=== PATIENT | female | born 1985 | race Caucasian/White ===

== ENCOUNTER → 2017-10-10 | Outpatient (CLI) | payer OTHER ==
[2017-10-10 15:36] LABS: ALBUMIN 4.1 GM/DL (3.2-5.2); ALBUMIN/GLOBULIN RATIO 1.32 (1.00-1.93); ALKALINE PHOSPHATASE 39 U/L (45-117); ALT/SGPT 28 U/L (12-78); ANION GAP 7 MEQ/L (8-16); AST/SGOT 15 U/L (7-37); BILIRUBIN,TOTAL 0.4 MG/DL (0.2-1.0); BLOOD UREA NITROGEN 11 MG/DL (7-18); CALCIUM LEVEL 8.7 MG/DL (8.5-10.1); CARBON DIOXIDE LEVEL 28 MEQ/L (21-32); CHLORIDE LEVEL 107 MEQ/L (98-107); CREATININE FOR GFR 0.73 MG/DL (0.55-1.30); GLOMERULAR FILTRATION RATE > 60.0 (>60); GLUCOSE, FASTING 81 MG/DL (70-100); LIPASE 231 U/L (73-393); SODIUM LEVEL 142 MEQ/L (136-145); TOTAL PROTEIN 7.2 GM/DL (6.4-8.2)
[2017-10-10 15:43] LABS: BASO % 0.5 % (0.0-1.0); EOS # 0.2 10^3/uL (0.0-0.50); EOS % 4.2 % (0.0-3.0); HEMATOCRIT 39.2 % (36.0-47.0); HEMOGLOBIN 12.7 g/dl (12.0-16.0); IMMATURE GRANULOCYTE % 0.2 % (0-3.0); LYMPH # 2.9 10^3/uL (1.5-4.5); LYMPH % 51.3 % (24.0-44.0); MEAN CORPUSCULAR HEMOGLOBIN 29.5 pg (27.0-33.0); MEAN CORPUSCULAR HGB CONC 32.4 g/dl (32.0-36.5); MEAN CORPUSCULAR VOLUME 91.2 fl (80.0-96.0); MONO # 0.4 10^3/uL (0.0-0.8); MONO % 6.5 % (0.0-5.0); NEUTROPHILS # 2.1 10^3/uL (1.8-7.7); NEUTROPHILS % 37.3 % (36.0-66.0); PLATELET COUNT, AUTOMATED 242 10^3/uL (150-450); RED CELL DISTRIBUTION WIDTH 12.9 % (11.5-14.5); WHITE BLOOD COUNT 5.7 10^3/uL (4.0-10.0)
== END ==
LOC: M LAB 07:48
DX: K85.90 Acute pancreatitis without necrosis or infection, unspecified (principal)
CPT/HCPCS: 83690

== ENCOUNTER → 2017-10-15 | Outpatient (CLI) | payer OTHER | LOC: M RAD 10:24 | DX: K85.90 Acute pancreatitis without necrosis or infection, unspecified (principal); N28.1 Cyst of kidney, acquired ==

== ENCOUNTER → 2018-10-04 | Outpatient (CLI) | payer OTHER | LOC: M LAB 16:45 | PROVIDERS: ATTEND Student in an Organized Health Care Education/Training Program | DX: Z34.81 Encounter for supervision of other normal pregnancy, first trimester (principal); Z36.89 Encounter for other specified antenatal screening ==

== ENCOUNTER 2018-11-05 17:19 | Emergency (ER) | payer OTHER ==
[~2018-11-05] VITALS: Ht 177.8 cm; Wt 82.3 kg
[2018-11-05] MEDS ORDERED: PREP1TAB3 PO (17:28)
[2018-11-05] MEDS ORDERED: ONDANSETRON 4MG/2ML VIAL (J2405) IV ONE (19:30)
[2018-11-05] MEDS ORDERED: NS 1,000 ML IV ONE (19:30)
[2018-11-05 20:03] LABS: BASO % 0.3 % (0.0-1.0); EOS % 0.1 % (0.0-3.0); HEMOGLOBIN 11.2 g/dl (12.0-15.5); LYMPH % 12.8 % (24.0-44.0); MEAN CORPUSCULAR HEMOGLOBIN 30.8 pg (27.0-33.0); MEAN CORPUSCULAR HGB CONC 33.9 g/dl (32.0-36.5); MEAN CORPUSCULAR VOLUME 90.7 fl (80.0-96.0); MONO # 0.4 10^3/uL (0.0-0.8); MONO % 4.8 % (0.0-5.0); NEUTROPHILS # 6.5 10^3/uL (1.8-7.7); NEUTROPHILS % 81.6 % (36.0-66.0); PLATELET COUNT, AUTOMATED 185 10^3/uL (150-450); RED BLOOD COUNT 3.64 10^6/uL (4.00-5.40); WHITE BLOOD COUNT 7.9 10^3/uL (4.0-10.0)
[2018-11-05 20:28] LABS: ALBUMIN 3.3 GM/DL (3.2-5.2); ALT/SGPT 27 U/L (12-78); BILIRUBIN,DIRECT 0.1 MG/DL (0.0-0.2); BILIRUBIN,TOTAL 0.5 MG/DL (0.2-1.0); BLOOD UREA NITROGEN 8 MG/DL (7-18); CALCIUM LEVEL 8.6 MG/DL (8.5-10.1); CARBON DIOXIDE LEVEL 24 MEQ/L (21-32); CHLORIDE LEVEL 107 MEQ/L (98-107); CREATININE FOR GFR 0.49 MG/DL (0.55-1.30); GLOMERULAR FILTRATION RATE > 60.0 (>60); GLUCOSE, FASTING 88 MG/DL (70-100); LIPASE 85 U/L (73-393); POTASSIUM SERUM 3.7 MEQ/L (3.5-5.1); SODIUM LEVEL 138 MEQ/L (136-145); TOTAL PROTEIN 6.5 GM/DL (6.4-8.2)
[2018-11-05] MEDS ORDERED: ONDA4TAB6 PO (21:34)
[2018-11-05 21:42] VITALS: BP 96/54
== END 2018-11-05 21:47 | disposition home or self-care (01) ==
LOC: M ED 17:19
DX: O98.519 Other viral diseases complicating pregnancy, unspecified trimester (principal); O99.280 Endocrine, nutritional and metabolic diseases complicating pregnancy, unspecified trimester; Z3A.00 Weeks of gestation of pregnancy not specified
CPT/HCPCS: 36415; 80048; 80076; 81001; 83605; 83690; 85025; 96374; 99284; J2405

== ENCOUNTER → 2019-01-06 | Outpatient (CLI) | payer OTHER ==
[~2019-01-06] MED LIST: ONDA4TAB6 PO; PREP1TAB3 PO
[2019-01-06 07:48] LABS: HEMATOCRIT 32.2 % (36.0-47.0); HEMOGLOBIN 10.6 g/dl (12.0-15.5); MEAN CORPUSCULAR HEMOGLOBIN 31.3 pg (27.0-33.0); MEAN CORPUSCULAR HGB CONC 32.9 g/dl (32.0-36.5); PLATELET COUNT, AUTOMATED 225 10^3/uL (150-450); RED BLOOD COUNT 3.39 10^6/uL (4.00-5.40); WHITE BLOOD COUNT 8.2 10^3/uL (4.0-10.0)
== END ==
LOC: M LAB 06:16
PROVIDERS: ATTEND Obstetrics & Gynecology
DX: Z34.80 Encounter for supervision of other normal pregnancy, unspecified trimester (principal); Z3A.23 23 weeks gestation of pregnancy

== ENCOUNTER → 2019-01-23 | Outpatient (CLI) | payer OTHER | LOC: M LAB 06:16 | PROVIDERS: ATTEND Obstetrics & Gynecology | DX: O99.810 Abnormal glucose complicating pregnancy (principal); Z3A.00 Weeks of gestation of pregnancy not specified ==

== ENCOUNTER 2019-04-27 00:59 | Emergency (ER) | payer OTHER ==
[~2019-04-27] VITALS: Ht 177.8 cm; Wt 81.8 kg
[2019-04-27] MEDS ORDERED: CLEO300C2 PO (02:09)
[2019-04-27] MEDS ORDERED: NORCO, ANEXSIA 5/325MG TABLET (HYDROcodone/ACETAMINOPHEN) PO ONE (02:15)
[2019-04-27] MEDS ORDERED: CLINDAMYCIN 150 MG CAP PO ONE (02:15)
[2019-04-27] MEDS ORDERED: IBUP80TA PO (02:16)
[2019-04-27 02:19] VITALS: BP 146/82
== END 2019-04-27 02:25 | disposition home or self-care (01) ==
LOC: M ED 00:59
DX: N61.0 Mastitis without abscess (principal)

== ENCOUNTER → 2019-06-04 | Outpatient (REF) | payer OTHER ==
[~2019-06-04] MED LIST changes: +CLEO300C2 PO; +IBUP80TA PO
[2019-06-04 18:53] LABS: APPEARANCE, URINE CLEAR (CLEAR); BACTERIA, URINE AUTO NEGATIVE (NEGATIVE); BILIRUBIN, URINE AUTO NEGATIVE (NEGATIVE); BLOOD, URINE BLOOD 3+ (NEGATIVE); COLOR, URINE STRAW (YELLOW); GLUCOSE, URINE (UA) AUTO NEGATIVE (NEGATIVE); KETONE, URINE AUTO NEGATIVE (NEGATIVE); LEUKOCYTE ESTERASE, URINE AUTO 2+ (NEGATIVE); NITRITE, URINE AUTO NEGATIVE (NEGATIVE); PROTEIN, URINE AUTO NEGATIVE (NEGATIVE); RBC, URINE AUTO 1 /HPF (0-3); SPECIFIC GRAVITY URINE AUTO 1.002 (1.002-1.035); SQUAMOUS EPITHELIAL CELL UR AU 0 /HPF (0-6); UROBILINOGEN, URINE AUTO 0.2 mg/dL (0.0-2.0); WBC, URINE AUTO 23 /HPF (0-3)
== END ==
LOC: M SMT 17:56
PROVIDERS: ATTEND Obstetrics & Gynecology
DX: R30.0 Dysuria (principal)

== ENCOUNTER → 2020-01-29 | Outpatient (CLI) | payer OTHER ==
--- NOTE | 2020-01-29 09:36 | REP ---
Clinical: Dorsalgia. Chronic thoracic pain. Technique: AP, lateral, and swimmers views. Findings: Alignment and kyphosis is maintained. Vertebral bodies intact. No acute fracture / compression injury or subluxation. No degenerative changes. Paravertebral soft tissues are normal. Impression: Normal thoracic spine series. Electronically Signed by Jack Jeffery MD 01/29/2020 09:28 A
--- NOTE | 2020-01-29 09:38 | REP ---
Clinical: Dorsalgia. Chronic back pain. Technique: AP, lateral, bilateral oblique, and coned-down views. Findings: Alignment and lordosis is maintained. The vertebral bodies including transverse process and spinous processes are intact and there is no evidence for acute fracture / compression injury or subluxation. No evidence for spondylolysis or spondylolisthesis. Focal early advanced degenerative changes at L5-S1 includes endplate sclerosis with near complete disc space obliteration and hypertrophic facet changes. Impression: Focal early advanced degenerative spondylosis at L5-S1. Electronically Signed by Jack Jeffery MD 01/29/2020 09:29 A
== END ==
LOC: M CR 08:41
PROVIDERS: ATTEND Family Medicine
DX: M54.9 Dorsalgia, unspecified (principal); G89.29 Other chronic pain; M47.817 Spondylosis without myelopathy or radiculopathy, lumbosacral region

== ENCOUNTER → 2020-01-29 | Outpatient (REF) | payer OTHER ==
[2020-01-29 11:44] LABS: HEMATOCRIT 40.9 % (36.0-47.0); HEMOGLOBIN 12.9 g/dl (12.0-15.5); MEAN CORPUSCULAR HEMOGLOBIN 27.9 pg (27.0-33.0); MEAN CORPUSCULAR HGB CONC 31.5 g/dl (32.0-36.5); MEAN CORPUSCULAR VOLUME 88.3 fl (80.0-96.0); PLATELET COUNT, AUTOMATED 241 10^3/uL (150-450); RED BLOOD COUNT 4.63 10^6/uL (4.00-5.40); WHITE BLOOD COUNT 6.3 10^3/uL (4.0-10.0)
[2020-01-29 12:08] LABS: ALBUMIN 4.1 GM/DL (3.2-5.2); ALT/SGPT 17 U/L (12-78); BILIRUBIN,TOTAL 0.6 MG/DL (0.2-1.0); BLOOD UREA NITROGEN 14 MG/DL (7-18); C REACTIVE PROTEIN QUANTITATIV < 0.30 MG/DL (0.00-0.30); CALCIUM LEVEL 9.1 MG/DL (8.5-10.1); CARBON DIOXIDE LEVEL 26 MEQ/L (21-32); CHLORIDE LEVEL 108 MEQ/L (98-107); CREATININE FOR GFR 0.77 MG/DL (0.55-1.30); GLOMERULAR FILTRATION RATE > 60.0 (>60); GLUCOSE, FASTING 94 MG/DL (70-100); POTASSIUM SERUM 4.3 MEQ/L (3.5-5.1); SODIUM LEVEL 140 MEQ/L (136-145); TOTAL PROTEIN 7.6 GM/DL (6.4-8.2)
[2020-01-29 12:16] LABS: ERYTHROCYTE SEDIMENTATION RATE 9 mm/hr (0-20)
[2020-02-04 13:07] LABS: ANA (HEP2) Positive (.); CYCLIC CITRULLINATED PEPTIDE 5 units (0-19); HLA-B27 Negative (.); Lyme Disease IgG/IgM Antibodie <0.91 ISR (0.00-0.90); Lyme Disease IgM Ab Quantitati <0.80 index (0.00-0.79)
== END ==
LOC: M SFHCCLAY 08:27
PROVIDERS: ATTEND Family Medicine
DX: M54.9 Dorsalgia, unspecified (principal); G89.29 Other chronic pain

== ENCOUNTER 2020-10-14 00:17 | Emergency (ER) | payer OTHER ==
[~2020-10-14] VITALS: Ht 175.3 cm; Wt 79.5 kg
[~2020-10-14 00:17] MED LIST changes: -LEXA1TAB PO; -PYRI1TAB5 PO; -SULF1TAB23 PO
[2020-10-14] MEDS ORDERED: LEXA1TAB PO (00:25)
[2020-10-14] MEDS ORDERED: NS 1,000 ML IV ONE (01:05)
[2020-10-14 01:27] LABS: BASO # 0.1 10^3/uL (0.0-0.2); BASO % 0.4 % (0.0-1.0); EOS # 0.2 10^3/uL (0.0-0.5); EOS % 1.4 % (0.0-3.0); HEMATOCRIT 37.6 % (36.0-47.0); HEMOGLOBIN 12.4 g/dl (12.0-15.5); LYMPH # 2.8 10^3/uL (1.5-5.0); LYMPH % 19.8 % (24.0-44.0); MEAN CORPUSCULAR HEMOGLOBIN 29.7 pg (27.0-33.0); MONO # 0.9 10^3/uL (0.0-0.8); MONO % 6.6 % (2.0-8.0); NEUTROPHILS % 71.3 % (36.0-66.0); PLATELET COUNT, AUTOMATED 199 10^3/uL (150-450); RED BLOOD COUNT 4.18 10^6/uL (4.00-5.40)
[2020-10-14 02:02] LABS: BLOOD UREA NITROGEN 12 MG/DL (7-18); CREATININE FOR GFR 0.73 MG/DL (0.55-1.30); GLUCOSE, FASTING 113 MG/DL (70-100)
[2020-10-14 02:03] LABS: ALBUMIN 3.9 GM/DL (3.2-5.2); ALT/SGPT 15 U/L (12-78); AMYLASE 43 U/L (25-115); BILIRUBIN,DIRECT 0.1 MG/DL (0.0-0.2); BILIRUBIN,TOTAL 0.2 MG/DL (0.2-1.0); CARBON DIOXIDE LEVEL 28 MEQ/L (21-32); CHLORIDE LEVEL 107 MEQ/L (98-107); CPK CREATINE PHOSPHOKINASE 96 U/L (26-192); FREE T4 0.81 NG/DL (0.76-1.46); GLOMERULAR FILTRATION RATE > 60.0 (>60); LIPASE 86 U/L (73-393); POTASSIUM SERUM 3.7 MEQ/L (3.5-5.1); SODIUM LEVEL 140 MEQ/L (136-145); THYROID STIMULATING HORMONE 0.505 uIU/ML (0.358-3.740)
[2020-10-14] MEDS ORDERED: cefTRIAXone SOD 1 GM in D5W MINI-BAG PLUS 50 ML IV ONE (02:25)
[2020-10-14] MEDS ORDERED: PYRI1TAB5 PO (02:29)
[2020-10-14] MEDS ORDERED: SULF1TAB23 PO (02:29)
[2020-10-14 03:01] VITALS: BP 110/67
== END 2020-10-14 03:12 | disposition home or self-care (01) ==
LOC: M ED 00:17
DX: N39.0 Urinary tract infection, site not specified (principal); R31.0 Gross hematuria; R30.0 Dysuria; N10 Acute pyelonephritis; F41.9 Anxiety disorder, unspecified; Z79.899 Other long term (current) drug therapy
CPT/HCPCS: 80048; 80076; 81001; 82150; 82550; 83690; 83735; 84439; 84443; 84702; 85025; 87088; 87186; 96361; 96365; 99284; J0696

== ENCOUNTER → 2020-10-14 | Outpatient (CLI) | payer OTHER ==
[~2020-10-14] MED LIST changes: +LEXA1TAB PO; +PYRI1TAB5 PO; +SULF1TAB23 PO
[2020-10-14 15:42] LABS: BASO # 0.1 10^3/uL (0.0-0.2); BASO % 0.5 % (0.0-1.0); EOS # 0.2 10^3/uL (0.0-0.5); EOS % 2.1 % (0.0-3.0); HEMATOCRIT 37.8 % (36.0-47.0); HEMOGLOBIN 12.4 g/dl (12.0-15.5); LYMPH # 3.8 10^3/uL (1.5-5.0); LYMPH % 38.2 % (24.0-44.0); MEAN CORPUSCULAR HEMOGLOBIN 29.5 pg (27.0-33.0); MEAN CORPUSCULAR HGB CONC 32.8 g/dl (32.0-36.5); MONO # 0.8 10^3/uL (0.0-0.8); MONO % 7.6 % (2.0-8.0); NEUTROPHILS # 5.1 10^3/uL (1.5-8.5); NEUTROPHILS % 51.3 % (36.0-66.0); PLATELET COUNT, AUTOMATED 212 10^3/uL (150-450)
[2020-10-14 16:07] LABS: BLOOD UREA NITROGEN 9 MG/DL (7-18); CALCIUM LEVEL 8.8 MG/DL (8.5-10.1); CARBON DIOXIDE LEVEL 27 MEQ/L (21-32); CHLORIDE LEVEL 108 MEQ/L (98-107); CREATININE FOR GFR 0.72 MG/DL (0.55-1.30); GLOMERULAR FILTRATION RATE > 60.0 (>60); GLUCOSE, FASTING 98 MG/DL (70-100); POTASSIUM SERUM 3.6 MEQ/L (3.5-5.1); SODIUM LEVEL 141 MEQ/L (136-145)
== END ==
LOC: M LAB 14:43
PROVIDERS: ATTEND Family Medicine
DX: F41.9 Anxiety disorder, unspecified (principal); N12 Tubulo-interstitial nephritis, not specified as acute or chronic

== ENCOUNTER 2020-11-11 11:50 | Emergency (ER) | payer OTHER ==
[~2020-11-11] VITALS: Ht 175.3 cm; Wt 80.0 kg
[~2020-11-11 11:50] MED LIST changes: +LEXA1TAB PO; +PYRI1TAB5 PO; +SULF1TAB23 PO
[2020-11-11] MEDS ORDERED: ALBUTEROL 90 MCG/ACT 8GM HFA INHALER INH ONE (13:00)
[2020-11-11 13:56] LABS: HEMATOCRIT 37.7 % (36.0-47.0); HEMOGLOBIN 12.3 g/dl (12.0-15.5); MEAN CORPUSCULAR HEMOGLOBIN 29.4 pg (27.0-33.0); MEAN CORPUSCULAR HGB CONC 32.6 g/dl (32.0-36.5); PLATELET COUNT, AUTOMATED 126 10^3/uL (150-450); RED BLOOD COUNT 4.19 10^6/uL (4.00-5.40); WHITE BLOOD COUNT 3.3 10^3/uL (4.0-10.0)
[2020-11-11 14:13] LABS: HCG, SERUM QUALITATIVE NEGATIVE (NEGATIVE)
[2020-11-11 14:14] LABS: ALBUMIN 3.5 GM/DL (3.2-5.2); ALT/SGPT 20 U/L (12-78); BILIRUBIN,TOTAL 0.2 MG/DL (0.2-1.0); BLOOD UREA NITROGEN 9 MG/DL (7-18); C REACTIVE PROTEIN QUANTITATIV 2.91 MG/DL (0.00-0.30); CALCIUM LEVEL 8.3 MG/DL (8.5-10.1); CARBON DIOXIDE LEVEL 29 MEQ/L (21-32); CHLORIDE LEVEL 108 MEQ/L (98-107); CREATININE FOR GFR 0.64 MG/DL (0.55-1.30); GLOMERULAR FILTRATION RATE > 60.0 (>60); GLUCOSE, FASTING 107 MG/DL (70-100); POTASSIUM SERUM 3.2 MEQ/L (3.5-5.1); SODIUM LEVEL 141 MEQ/L (136-145); TOTAL PROTEIN 6.7 GM/DL (6.4-8.2)
--- NOTE | 2020-11-11 14:38 | REP ---
INDICATION: Coronavirus workup. COMPARISON: 02/20/2008. TECHNIQUE: SINGLE PORTABLE AP VIEW OF THE CHEST WAS PERFORMED. FINDINGS: Bibasilar infiltrates are present. The heart is normal in size. The mediastinal silhouette is unremarkable. The visualized osseous structures are intact. IMPRESSION: Bibasilar infiltrates. <Electronically signed by Vicente Vergara > 11/11/20 [id number]
[2020-11-11 14:44] LABS: ATYPICAL LYMPH 4 % (0-5); BLAST CELLS 1 % (0-0); LYMPHOCYTES 34 % (16-44); MONOCYTES 2 % (0-5); NEUTROPHILS 51 % (28-66)
[2020-11-11 14:45] LABS: ANISOCYTOSIS 1+; PLATELET ESTIMATE DECREASED (NORMAL)
[2020-11-11] MEDS ORDERED: NS 500 ML IV ONE (15:25)
[2020-11-11] MEDS ORDERED: cefTRIAXone SOD 1 GM in D5W MINI-BAG PLUS 50 ML IV ONE (15:25)
[2020-11-11] MEDS ORDERED: ISOVUE-370 76% 100ML VIAL As Ordered ONE (15:35)
[2020-11-11] MEDS ORDERED: AUGM875T28 PO (15:48)
[2020-11-11] MEDS ORDERED: ACETAMINOPHEN 325 MG TAB PO ONE (16:00)
--- NOTE | 2020-11-11 16:04 | REP ---
INDICATION: covid +, sob, elevated d-dimer, r/o PE. COMPARISON: 02/20/2008 TECHNIQUE: CT angiography after the intravenous administration of 100 cc Isovue 370 attention pulmonary arteries. FINDINGS: There is excellent visualization of the pulmonary arterial vasculature. No focal filling defects are present that would be considered consistent with acute pulmonary emboli. The thoracic aorta is seen in limited fashion but appears to be within normal limits. There is bilateral hilar adenopathy. There is no evidence of mediastinal adenopathy. There are no pleural or pericardial effusions. The imaged upper abdomen is within normal limits. The imaged osseous structures are within normal limits. Evaluation of the lung perea shows numerable scattered airspace opacities some of which have air bronchograms and most of which have a densities higher than normally excepted as a ground-glass nodule. This represents a significant change compared to the prior exam. IMPRESSION: 1. Abnormal airspace opacities and hilar adenopathy as described above consistent with the patient's diagnosis of infectious etiology. Appropriate follow-up is recommended. 2. There is no evidence of a pulmonary embolism. <Electronically signed by Thierry Lange > 11/11/20 [id number]
[2020-11-11 16:33] VITALS: BP 116/67; O2SAT 95
--- NOTE | 2020-11-11 19:24 | ED PDOC ---
Post-Departure Follow-Up cta chest faxed to dr garza for fu Graciela Toro MD Nov 11, 2020 19:24
== END 2020-11-11 16:38 | disposition home or self-care (01) ==
LOC: M ED 11:50
DX: J12.82 Pneumonia due to coronavirus disease 2019 (principal); F41.9 Anxiety disorder, unspecified; Z79.899 Other long term (current) drug therapy
CPT/HCPCS: 71045; 71275; 80053; 83605; 84703; 85025; 85379; 86140; 87040; 94640; 96365; 99284; J0696; Q9967

== ENCOUNTER → 2021-07-31 | Outpatient (REF) | payer OTHER ==
[~2021-07-31] MED LIST changes: +AUGM875T28 PO
[2021-07-31 16:22] LABS: HEMATOCRIT 41.4 % (36.0-47.0); HEMOGLOBIN 13.5 g/dl (12.0-15.5); MEAN CORPUSCULAR HEMOGLOBIN 29.2 pg (27.0-33.0); MEAN CORPUSCULAR HGB CONC 32.6 g/dl (32.0-36.5); MEAN CORPUSCULAR VOLUME 89.4 fl (80.0-96.0); PLATELET COUNT, AUTOMATED 165 10^3/uL (150-450); RED BLOOD COUNT 4.63 10^6/uL (4.00-5.40); WHITE BLOOD COUNT 4.1 10^3/uL (4.0-10.0)
[2021-07-31 16:43] LABS: ATYPICAL LYMPH 19 % (0-5); BASOPHILS 3 % (0-1); EOSINOPHILS 3 % (0-3); LYMPHOCYTES 37 % (16-44); MONOCYTES 3 % (0-5); NEUTROPHILS 34 % (28-66)
[2021-07-31 16:44] LABS: PLATELET ESTIMATE NORMAL (NORMAL)
[2021-07-31 17:09] LABS: HCG, SERUM QUANTITATIVE < 1.0 MIU/ML
[2021-08-01 21:07] LABS: MONO SCRN NEGATIVE (NEGATIVE)
[2021-08-02 15:08] LABS: EBV AB TO NUCLEAR ANTIGEN <18.0 U/mL (0.0-17.9); EBV VIRAL CAPSID AG IgG <18.0 U/mL (0.0-17.9); EBV VIRAL CAPSID AG IgM <36.0 U/mL (0.0-35.9)
== END ==
LOC: M LAB REF 15:53
PROVIDERS: ATTEND Physician Assistant
DX: R50.9 Fever, unspecified (principal)

== ENCOUNTER 2021-08-03 13:22 | Emergency (ER) | payer OTHER ==
[~2021-08-03] VITALS: Ht 175.3 cm; Wt 81.8 kg
[2021-08-03] MEDS ORDERED: ACET-683 PO (13:34)
[2021-08-03] MEDS ORDERED: IBUP200C25 PO (13:34)
[2021-08-03 14:55] LABS: HEMATOCRIT 36.1 % (36.0-47.0); HEMOGLOBIN 11.8 g/dl (12.0-15.5); MEAN CORPUSCULAR HEMOGLOBIN 28.5 pg (27.0-33.0); MEAN CORPUSCULAR HGB CONC 32.7 g/dl (32.0-36.5); MEAN CORPUSCULAR VOLUME 87.2 fl (80.0-96.0); PLATELET COUNT, AUTOMATED 111 10^3/uL (150-450); RED BLOOD COUNT 4.14 10^6/uL (4.00-5.40); WHITE BLOOD COUNT 3.6 10^3/uL (4.0-10.0)
[2021-08-03 15:21] LABS: ALBUMIN 3.5 GM/DL (3.2-5.2); ALT/SGPT 166 U/L (12-78); BILIRUBIN,TOTAL 1.9 MG/DL (0.2-1.0); BLOOD UREA NITROGEN 18 MG/DL (7-18); CALCIUM LEVEL 8.4 MG/DL (8.5-10.1); CARBON DIOXIDE LEVEL 24 MEQ/L (21-32); CHLORIDE LEVEL 107 MEQ/L (98-107); GLOMERULAR FILTRATION RATE > 60.0 (>60); GLUCOSE, FASTING 145 MG/DL (70-100); LIPASE 62 U/L (73-393); POTASSIUM SERUM 3.5 MEQ/L (3.5-5.1); SODIUM LEVEL 139 MEQ/L (136-145)
[2021-08-03 15:33] LABS: HCG, SERUM QUALITATIVE NEGATIVE (NEGATIVE)
[2021-08-03 15:47] LABS: ATYPICAL LYMPH 27 % (0-5); MONOCYTES 10 % (0-5)
[2021-08-03 15:50] LABS: LYMPHOCYTES 22 % (16-44); NEUTROPHILS 31 % (28-66)
[2021-08-03 15:51] LABS: PLATELET ESTIMATE DECREASED (NORMAL)
[2021-08-03 18:46] LABS: MONO REFLEX EBV COMP POSITIVE (NEGATIVE)
[2021-08-03 18:56] LABS: LDH LACTATE DEHYDROGENASE 512 U/L (84-246)
[2021-08-03] MEDS ORDERED: NS 1,000 ML IV ONE (19:10)
[2021-08-03] MEDS ORDERED: ACETAMINOPHEN 500 MG TAB PO ONE (20:20)
[2021-08-03 21:09] LABS: HEPATITIS B SURFACE ANTIGEN NEGATIVE (NEGATIVE)
[2021-08-03] MEDS ORDERED: ONDA4TAB6 PO (21:10)
[2021-08-03 21:38] LABS: HEPATITIS B CORE ANTIBODY IGM NEGATIVE (NEGATIVE); HEPATITIS C VIRUS ABY INDEX 0.1 INDEX (<0.8)
[2021-08-03 21:48] VITALS: BP 126/64
== END 2021-08-03 21:51 | disposition home or self-care (01) ==
LOC: M ED 13:22
DX: B27.90 Infectious mononucleosis, unspecified without complication (principal); F41.9 Anxiety disorder, unspecified; Z86.16 Personal history of COVID-19; R16.0 Hepatomegaly, not elsewhere classified; Z79.899 Other long term (current) drug therapy

== ENCOUNTER → 2021-08-17 | Outpatient (CLI) | payer OTHER ==
[~2021-08-17] MED LIST changes: +ACET-683 PO; +IBUP200C25 PO
== END ==
LOC: M RAD 16:19
PROVIDERS: ATTEND Family Medicine
DX: E04.9 Nontoxic goiter, unspecified (principal)

== ENCOUNTER → 2021-08-31 | Outpatient (CLI) | payer OTHER ==
[2021-08-31 17:40] LABS: FREE T4 0.91 NG/DL (0.76-1.46); THYROID STIMULATING HORMONE 0.181 uIU/ML (0.358-3.740)
[2021-09-01 08:53] LABS: FREE T3 2.8 PG/ML (2.2-4.0)
== END ==
LOC: M PLALAB 15:04
PROVIDERS: ATTEND Nurse Practitioner Family
DX: E04.2 Nontoxic multinodular goiter (principal)

== ENCOUNTER → 2021-09-01 | Outpatient (REF) | payer OTHER | LOC: M SFHCCLAY 08:08 | PROVIDERS: ATTEND Family Medicine | DX: Z53.9 Procedure and treatment not carried out, unspecified reason (principal) ==

== ENCOUNTER → 2021-09-08 | Outpatient (CLI) | payer OTHER ==
[2021-09-08 17:30] LABS: BASO % 0.6 % (0.0-1.0); EOS # 0.1 10^3/uL (0.0-0.5); EOS % 2.4 % (0.0-3.0); HEMATOCRIT 35.7 % (36.0-47.0); HEMOGLOBIN 11.8 g/dl (12.0-15.5); LYMPH % 54.9 % (24.0-44.0); MEAN CORPUSCULAR HEMOGLOBIN 28.9 pg (27.0-33.0); MEAN CORPUSCULAR HGB CONC 33.1 g/dl (32.0-36.5); MEAN CORPUSCULAR VOLUME 87.3 fl (80.0-96.0); MONO # 0.4 10^3/uL (0.0-0.8); NEUTROPHILS # 1.8 10^3/uL (1.5-8.5); NEUTROPHILS % 33.9 % (36.0-66.0); PLATELET COUNT, AUTOMATED 183 10^3/uL (150-450); RED BLOOD COUNT 4.09 10^6/uL (4.00-5.40); WHITE BLOOD COUNT 5.4 10^3/uL (4.0-10.0)
[2021-09-08 17:57] LABS: BLOOD UREA NITROGEN 15 MG/DL (7-18); GLUCOSE, FASTING 93 MG/DL (70-100)
[2021-09-08 17:58] LABS: ALBUMIN 3.9 GM/DL (3.2-5.2); ALT/SGPT 25 U/L (12-78); BILIRUBIN,TOTAL 0.5 MG/DL (0.2-1.0); CALCIUM LEVEL 9.1 MG/DL (8.5-10.1); CARBON DIOXIDE LEVEL 28 MEQ/L (21-32); CHLORIDE LEVEL 107 MEQ/L (98-107); CHOLESTEROL LEVEL 183 MG/DL (<200); CHOLESTEROL RISK RATIO 3.519 (<5); FREE T4 0.84 NG/DL (0.76-1.46); GLOMERULAR FILTRATION RATE > 60.0 (>60); HDL CHOLESTEROL 52 MG/DL (>40); LDL CHOLESTEROL 102 MG/DL (<100); NON-HDL-C 131 MG/DL; POTASSIUM SERUM 3.8 MEQ/L (3.5-5.1); SODIUM LEVEL 142 MEQ/L (136-145); THYROID STIMULATING HORMONE 0.181 uIU/ML (0.358-3.740); TRIGLYCERIDES LEVEL 145 MG/DL (<150)
== END ==
LOC: M PLALAB 15:50
PROVIDERS: ATTEND Family Medicine
DX: B27.09 Gammaherpesviral mononucleosis with other complications (principal); K75.9 Inflammatory liver disease, unspecified; D69.6 Thrombocytopenia, unspecified; E78.49 Other hyperlipidemia; E04.9 Nontoxic goiter, unspecified

== ENCOUNTER → 2021-09-12 | Outpatient (CLI) | payer OTHER | LOC: M LAB 15:44 | PROVIDERS: ATTEND Specialist | DX: N92.6 Irregular menstruation, unspecified (principal) ==

== ENCOUNTER → 2021-09-12 | Outpatient (CLI) | payer OTHER | LOC: M RAD 15:38 | PROVIDERS: ATTEND Family Medicine | DX: N28.9 Disorder of kidney and ureter, unspecified (principal) ==

== ENCOUNTER → 2021-09-13 | Outpatient (REF) | payer OTHER | LOC: M LAB REF 19:03 | PROVIDERS: ATTEND Internal Medicine Endocrinology, Diabetes & Metabolism | DX: E04.2 Nontoxic multinodular goiter (principal) ==

== ENCOUNTER → 2021-09-14 | Outpatient (CLI) | payer OTHER | LOC: M PLALAB 09:57 | PROVIDERS: ATTEND Specialist | DX: N92.6 Irregular menstruation, unspecified (principal) ==

== ENCOUNTER → 2021-09-21 | Outpatient (CLI) | payer OTHER ==
[~2021-09-21] MED LIST changes: +ISOVUE-370 76% 100ML VIAL As Ordered ONE
== END ==
LOC: M RAD 07:33
PROVIDERS: ATTEND Physician Assistant
DX: N28.1 Cyst of kidney, acquired (principal)
CPT/HCPCS: 74170; Q9967

== ENCOUNTER → 2022-06-13 | Outpatient (REF) | payer OTHER ==
[~2022-06-13] MED LIST changes: -ISOVUE-370 76% 100ML VIAL As Ordered ONE
[2022-06-13 19:05] LABS: BASO % 0.5 % (0.0-1.0); EOS # 0.2 10^3/uL (0.0-0.5); EOS % 2.4 % (0.0-3.0); HEMATOCRIT 38.4 % (36.0-47.0); HEMOGLOBIN 12.6 g/dl (12.0-15.5); LYMPH # 3.6 10^3/uL (1.5-5.0); LYMPH % 40.9 % (24.0-44.0); MEAN CORPUSCULAR HEMOGLOBIN 29.3 pg (27.0-33.0); MEAN CORPUSCULAR HGB CONC 32.8 g/dl (32.0-36.5); MEAN CORPUSCULAR VOLUME 89.3 fl (80.0-96.0); MONO # 0.7 10^3/uL (0.0-0.8); MONO % 7.5 % (2.0-8.0); NEUTROPHILS # 4.2 10^3/uL (1.5-8.5); NEUTROPHILS % 48.6 % (36.0-66.0); PLATELET COUNT, AUTOMATED 250 10^3/uL (150-450); WHITE BLOOD COUNT 8.7 10^3/uL (4.0-10.0)
[2022-06-13 20:39] LABS: ALBUMIN 4.1 G/DL (3.2-5.2); ALT/SGPT 20 U/L (7.0-40); BILIRUBIN,TOTAL 0.2 MG/DL (0.3-1.2); BLOOD UREA NITROGEN 12 MG/DL (9-23); CALCIUM LEVEL 9.5 MG/DL (8.5-10.1); CARBON DIOXIDE LEVEL 28 MMOL/L (20-31); CHLORIDE LEVEL 102 MMOL/L (98-107); CREATININE FOR GFR 0.69 MG/DL (0.55-1.30); FREE T4 0.94 NG/DL (0.89-1.76); GLOMERULAR FILTRATION RATE > 60.0 (>60); GLUCOSE, FASTING 79 MG/DL (60-100); POTASSIUM SERUM 4.2 MMOL/L (3.5-5.1); SODIUM LEVEL 140 MMOL/L (136-145); THYROID STIMULATING HORMONE 0.309 uIU/ML (0.55-4.78); TOTAL PROTEIN 6.9 G/DL
== END ==
LOC: M SFHCCLAY 14:21
PROVIDERS: ATTEND Family Medicine
DX: B27.09 Gammaherpesviral mononucleosis with other complications (principal); K75.9 Inflammatory liver disease, unspecified; D69.6 Thrombocytopenia, unspecified; E78.49 Other hyperlipidemia; E04.9 Nontoxic goiter, unspecified

== ENCOUNTER → 2022-09-22 | Outpatient (CLI) | payer OTHER ==
[2022-09-22 14:20] LABS: BASO % 0.8 % (0.0-1.0); EOS # 0.2 10^3/uL (0.0-0.5); EOS % 3.5 % (0.0-3.0); HEMATOCRIT 40.7 % (36.0-47.0); HEMOGLOBIN 13.2 g/dl (12.0-15.5); LYMPH # 2.7 10^3/uL (1.5-5.0); LYMPH % 51.7 % (24.0-44.0); MEAN CORPUSCULAR HGB CONC 32.4 g/dl (32.0-36.5); MEAN CORPUSCULAR VOLUME 89.5 fl (80.0-96.0); MONO # 0.3 10^3/uL (0.0-0.8); MONO % 6.6 % (2.0-8.0); NEUTROPHILS # 1.9 10^3/uL (1.5-8.5); NEUTROPHILS % 37.2 % (36.0-66.0); PLATELET COUNT, AUTOMATED 245 10^3/uL (150-450); RED BLOOD COUNT 4.55 10^6/uL (4.00-5.40); WHITE BLOOD COUNT 5.2 10^3/uL (4.0-10.0)
[2022-09-22 15:01] LABS: ALBUMIN 3.9 G/DL (3.2-5.2); ALKALINE PHOSPHATASE 59 U/L (46-116); ALT/SGPT 21 U/L (7.0-40); AST/SGOT 13 U/L (<34); BILIRUBIN,TOTAL 0.4 MG/DL (0.3-1.2); BLOOD UREA NITROGEN 12 MG/DL (9-23); CALCIUM LEVEL 9.7 MG/DL (8.5-10.1); CARBON DIOXIDE LEVEL 27 MMOL/L (20-31); CHLORIDE LEVEL 105 MMOL/L (98-107); CHOLESTEROL LEVEL 167 MG/DL (<200); CHOLESTEROL RISK RATIO 3.72 (<5); CREATININE FOR GFR 0.83 MG/DL (0.55-1.30); FREE T4 0.93 NG/DL (0.89-1.76); GLOMERULAR FILTRATION RATE > 60.0 (>60); GLUCOSE, FASTING 113 MG/DL (60-100); HDL CHOLESTEROL 44.8 MG/DL (>40); LDL CHOLESTEROL 94.4 MG/DL (<100); NON-HDL-C 122 MG/DL; POTASSIUM SERUM 4.2 MMOL/L (3.5-5.1); SODIUM LEVEL 139 MMOL/L (136-145); THYROID STIMULATING HORMONE 0.149 uIU/ML (0.55-4.78); TOTAL PROTEIN 6.8 G/DL (5.7-8.2); TRIGLYCERIDES LEVEL 139 MG/DL (<150)
== END ==
LOC: M PLALAB 10:01
PROVIDERS: ATTEND Family Medicine
DX: F41.9 Anxiety disorder, unspecified (principal); E04.9 Nontoxic goiter, unspecified; D69.6 Thrombocytopenia, unspecified; E78.2 Mixed hyperlipidemia; K76.9 Liver disease, unspecified; B27.09 Gammaherpesviral mononucleosis with other complications

== ENCOUNTER → 2023-04-06 | Outpatient (CLI) | payer OTHER | LOC: M PLALAB 15:36 | PROVIDERS: ATTEND Advanced Practice Midwife | DX: O20.0 Threatened abortion (principal); Z3A.00 Weeks of gestation of pregnancy not specified ==

== ENCOUNTER → 2023-04-08 | Outpatient (CLI) | payer OTHER ==
[2023-04-08 16:27] LABS: HCG, SERUM QUALITATIVE POSITIVE (NEGATIVE)
[2023-04-09 14:00] LABS: HCG, SERUM QUANTITATIVE 125531.9 MIU/ML (<4.2)
== END ==
LOC: M LAB 15:44
PROVIDERS: ATTEND Advanced Practice Midwife
DX: O20.0 Threatened abortion (principal); Z3A.00 Weeks of gestation of pregnancy not specified

== ENCOUNTER → 2023-04-19 | Outpatient (REF) | payer OTHER | LOC: M PLALAB 11:14 | PROVIDERS: ATTEND Advanced Practice Midwife | DX: O09.521 Supervision of elderly multigravida, first trimester (principal); Z3A.00 Weeks of gestation of pregnancy not specified ==

== ENCOUNTER → 2023-06-29 | Outpatient (CLI) | payer OTHER | LOC: M WHC 15:17 | PROVIDERS: ATTEND Advanced Practice Midwife | DX: O34.211 Maternal care for low transverse scar from previous cesarean delivery (principal); Z3A.19 19 weeks gestation of pregnancy ==

== ENCOUNTER → 2023-08-09 | Outpatient (CLI) | payer OTHER ==
[2023-08-09 10:24] LABS: HEMOGLOBIN 10.2 g/dl (12.0-15.5); MEAN CORPUSCULAR HEMOGLOBIN 28.7 pg (27.0-33.0); MEAN CORPUSCULAR HGB CONC 31.9 g/dl (32.0-36.5); MEAN CORPUSCULAR VOLUME 90.1 fl (80.0-96.0); PLATELET COUNT, AUTOMATED 258 10^3/uL (150-450); RED BLOOD COUNT 3.55 10^6/uL (4.00-5.40)
== END ==
LOC: M PLALAB 07:34
PROVIDERS: ATTEND Advanced Practice Midwife
DX: O34.211 Maternal care for low transverse scar from previous cesarean delivery (principal)

== ENCOUNTER → 2023-08-24 | Outpatient (CLI) | payer OTHER | LOC: M LAB 06:46 | PROVIDERS: ATTEND Advanced Practice Midwife | DX: O99.810 Abnormal glucose complicating pregnancy (principal); Z3A.00 Weeks of gestation of pregnancy not specified ==

== ENCOUNTER → 2023-09-21 | Outpatient (CLI) | payer OTHER | LOC: M WHC 07:00 | PROVIDERS: ATTEND Advanced Practice Midwife | DX: O26.843 Uterine size-date discrepancy, third trimester (principal); Z3A.31 31 weeks gestation of pregnancy ==

== ENCOUNTER → 2023-10-26 | Outpatient (REF) | payer OTHER ==
[~2023-10-26] MED LIST changes: +FERR325T81 PO; +PNV1TABL16 PO
== END ==
LOC: M SFHCWAGY 15:02
PROVIDERS: ATTEND Specialist
DX: Z34.83 Encounter for supervision of other normal pregnancy, third trimester (principal)

== ENCOUNTER → 2023-10-31 | Outpatient (REF) | payer OTHER | LOC: M PLALAB 08:22 | PROVIDERS: ATTEND Advanced Practice Midwife | DX: R09.81 Nasal congestion (principal) ==

== ENCOUNTER 2023-11-01 20:31 | Outpatient (CLI) | payer OTHER ==
[~2023-11-01] VITALS: Ht 175.3 cm; Wt 101.0 kg
[2023-11-01 20:42] VITALS: BP 117/58
== END 2023-11-01 22:30 | disposition home or self-care (01) ==
LOC: M LDO 20:31
PROVIDERS: ATTEND Obstetrics & Gynecology
DX: O36.8130 Decreased fetal movements, third trimester, not applicable or unspecified (principal); O34.211 Maternal care for low transverse scar from previous cesarean delivery; O09.523 Supervision of elderly multigravida, third trimester; Z3A.37 37 weeks gestation of pregnancy
CPT/HCPCS: 59025; 76815; G0463

== ENCOUNTER → 2024-02-25 | Outpatient (REF) | payer OTHER ==
[~2024-02-25] MED LIST changes: +COLA100C5 PO; +ONDA-282 PO; -ONDA4TAB6 PO; +PERCOCET PO
[2024-02-25 18:19] LABS: BASO % 0.4 % (0.0-1.0); EOS # 0.2 10^3/uL (0.0-0.5); EOS % 2.6 % (0.0-3.0); HEMATOCRIT 41.2 % (36.0-47.0); LYMPH # 3.9 10^3/uL (1.5-5.0); MEAN CORPUSCULAR HEMOGLOBIN 26.8 pg (27.0-33.0); MEAN CORPUSCULAR HGB CONC 31.6 g/dl (32.0-36.5); MEAN CORPUSCULAR VOLUME 84.9 fl (80.0-96.0); MONO # 0.6 10^3/uL (0.0-0.8); MONO % 7.9 % (2.0-8.0); NEUTROPHILS # 2.5 10^3/uL (1.5-8.5); NEUTROPHILS % 34.5 % (36.0-66.0); PLATELET COUNT, AUTOMATED 233 10^3/uL (150-450); RED BLOOD COUNT 4.85 10^6/uL (4.00-5.40); WHITE BLOOD COUNT 7.2 10^3/uL (4.0-10.0)
[2024-02-25 18:23] LABS: ALKALINE PHOSPHATASE 62 U/L (46-116); ALT/SGPT 28 U/L (7.0-40); AST/SGOT 12 U/L (<34); BILIRUBIN,TOTAL 0.3 MG/DL (0.3-1.2); BLOOD UREA NITROGEN 13 MG/DL (9-23); CALCIUM LEVEL 9.4 MG/DL (8.5-10.1); CARBON DIOXIDE LEVEL 27 MMOL/L (20-31); CHLORIDE LEVEL 105 MMOL/L (98-107); CHOLESTEROL LEVEL 192 MG/DL (<200); CHOLESTEROL RISK RATIO 3.41 (<5); CREATININE FOR GFR 0.72 MG/DL (0.55-1.30); GLOMERULAR FILTRATION RATE > 60.0 (>60); GLUCOSE, FASTING 92 MG/DL (60-100); HDL CHOLESTEROL 56.2 MG/DL (>40); NON-HDL-C 135.8 MG/DL; POTASSIUM SERUM 4.1 MMOL/L (3.5-5.1); SODIUM LEVEL 138 MMOL/L (136-145); TOTAL PROTEIN 6.9 G/DL (5.7-8.2); TRIGLYCERIDES LEVEL 294 MG/DL (<150)
[2024-02-25 18:24] LABS: FREE T4 0.79 NG/DL (0.89-1.76); THYROID STIMULATING HORMONE 0.195 uIU/ML (0.55-4.78)
== END ==
LOC: M SFHCCLAY 13:42
PROVIDERS: ATTEND Physician Assistant
DX: E78.2 Mixed hyperlipidemia (principal); E04.2 Nontoxic multinodular goiter; D69.6 Thrombocytopenia, unspecified

== ENCOUNTER → 2024-03-28 | Outpatient (CLI) | payer OTHER | LOC: M RAD 07:59 | PROVIDERS: ATTEND Physician Assistant | DX: E04.2 Nontoxic multinodular goiter (principal) ==

== ENCOUNTER → 2024-04-05 | Outpatient (CLI) | payer OTHER ==
[2024-04-05 09:31] LABS: FREE T4 1.08 NG/DL (0.89-1.76); THYROID STIMULATING HORMONE 0.15 uIU/ML (0.55-4.78)
[2024-04-08 07:28] LABS: THRYOGLOBULIN ANTIBODIES (ATA) < 1 IU/mL (< or = 1); THYROGLOBULIN QUANTITATIVE 29.6 ng/mL (2.8-40.9)
== END ==
LOC: M LAB 08:13
PROVIDERS: ATTEND Physician Assistant
DX: E04.2 Nontoxic multinodular goiter (principal)

== ENCOUNTER → 2024-04-11 | Outpatient (CLI) | payer OTHER | LOC: M RAD 07:56 | PROVIDERS: ATTEND Physician Assistant | DX: R10.13 Epigastric pain (principal); K80.20 Calculus of gallbladder without cholecystitis without obstruction; K76.0 Fatty (change of) liver, not elsewhere classified; R16.0 Hepatomegaly, not elsewhere classified ==

== ENCOUNTER → 2024-04-11 | Outpatient (REF) | payer OTHER ==
[2024-04-15 13:42] LABS: HPV APTIMA Not Detected (Not Detected)
== END ==
LOC: M SFHCWAGY 17:50
PROVIDERS: ATTEND Obstetrics & Gynecology
DX: Z12.4 Encounter for screening for malignant neoplasm of cervix (principal)
CPT/HCPCS: 87624; G0123

== ENCOUNTER → 2024-07-03 | Outpatient (REF) | payer OTHER ==
[2024-07-03 17:51] LABS: APPEARANCE, URINE HAZY (CLEAR); BACTERIA, URINE AUTO NEGATIVE (NEGATIVE); BILIRUBIN, URINE AUTO NEGATIVE (NEGATIVE); BLOOD, URINE BLOOD 2+ (NEGATIVE); COLOR, URINE YELLOW (YELLOW); GLUCOSE, URINE (UA) AUTO NEGATIVE (NEGATIVE); KETONE, URINE AUTO NEGATIVE (NEGATIVE); LEUKOCYTE ESTERASE, URINE AUTO NEGATIVE (NEGATIVE); MUCUS, URINE SMALL (NEGATIVE); NITRITE, URINE AUTO NEGATIVE (NEGATIVE); PROTEIN, URINE AUTO NEGATIVE (NEGATIVE); RBC, URINE AUTO 2 /HPF (0-3); SPECIFIC GRAVITY URINE AUTO 1.011 (1.002-1.035); SQUAMOUS EPITHELIAL CELL UR AU 4 /HPF (0-6); UROBILINOGEN, URINE AUTO 0.2 mg/dL (0.0-2.0); WBC, URINE AUTO 1 /HPF (0-3)
== END ==
LOC: M SMT 16:56
PROVIDERS: ATTEND Physician Assistant
DX: M54.9 Dorsalgia, unspecified (principal)

== ENCOUNTER → 2024-07-03 | Outpatient (CLI) | payer OTHER ==
[2024-07-03 17:51] LABS: FREE T4 1.05 NG/DL (0.89-1.76); THYROID STIMULATING HORMONE 0.095 uIU/ML (0.55-4.78)
== END ==
LOC: M PLALAB 14:01
PROVIDERS: ATTEND Nurse Practitioner Family
DX: R94.6 Abnormal results of thyroid function studies (principal)

== ENCOUNTER → 2024-07-07 | Outpatient (CLI) | payer OTHER ==
[~2024-07-07] MED LIST changes: +E-Z-GAS II EFFERVESCENT PACKET (SODIUM BICARB./CITRIC ACID/SIMETHICONE) As Ordered ONE; +E-Z-HD 98% w/w 340GM SUSP BTL As Ordered ONE; +E-Z-PAQUE 96% w/w SUSP 176GM BTL As Ordered ONE
== END ==
LOC: M RAD 09:35
PROVIDERS: ATTEND Surgery
DX: R10.13 Epigastric pain (principal)

== ENCOUNTER → 2024-09-30 | Outpatient (REF) | payer OTHER ==
[~2024-09-30] MED LIST changes: -E-Z-GAS II EFFERVESCENT PACKET (SODIUM BICARB./CITRIC ACID/SIMETHICONE) As Ordered ONE; -E-Z-HD 98% w/w 340GM SUSP BTL As Ordered ONE; -E-Z-PAQUE 96% w/w SUSP 176GM BTL As Ordered ONE
== END ==
LOC: M LAB REF 18:29
PROVIDERS: ATTEND Internal Medicine Endocrinology, Diabetes & Metabolism
DX: E04.2 Nontoxic multinodular goiter (principal)

== ENCOUNTER 2024-10-07 12:20 | Emergency (ER) | payer OTHER ==
[~2024-10-07] VITALS: Ht 175.3 cm; Wt 80.1 kg
[2024-10-07 12:22] VITALS: BP 111/60; TEMP 97.9; O2SAT 95
== END 2024-10-07 12:58 | disposition left against medical advice (07) ==
LOC: M ED 12:20
DX: Z53.21 Procedure and treatment not carried out due to patient leaving prior to being seen by health care provider (principal)

== ENCOUNTER → 2025-05-01 | Outpatient (CLI) | payer OTHER ==
[2025-05-01 11:50] LABS: ALT/SGPT 11 U/L (7.0-40); AST/SGOT 10 U/L (<34); C REACTIVE PROTEIN QUANTITATIV < 0.50 MG/DL (<1.0); TRIGLYCERIDES LEVEL 65 MG/DL (<150)
[2025-05-01 11:52] LABS: FREE T4 1.12 NG/DL (0.89-1.76)
[2025-05-01 12:06] LABS: CALCIUM LEVEL 8.8 MG/DL (8.5-10.1)
== END ==
LOC: M PLALAB 07:25
PROVIDERS: ATTEND Internal Medicine Gastroenterology
DX: R10.9 Unspecified abdominal pain (principal); R19.4 Change in bowel habit; R19.8 Other specified symptoms and signs involving the digestive system and abdomen; R11.0 Nausea; R93.89 Abnormal findings on diagnostic imaging of other specified body structures; Z80.0 Family history of malignant neoplasm of digestive organs

== ENCOUNTER → 2025-05-18 | Outpatient (REF) | payer OTHER | LOC: M LAB REF 09:41 | PROVIDERS: ATTEND Internal Medicine Gastroenterology | DX: R10.9 Unspecified abdominal pain (principal); R19.4 Change in bowel habit; R19.8 Other specified symptoms and signs involving the digestive system and abdomen; R11.0 Nausea; R93.89 Abnormal findings on diagnostic imaging of other specified body structures; Z80.0 Family history of malignant neoplasm of digestive organs ==